=== PATIENT | male | born 2000 | race African-American/Black ===

== ENCOUNTER 2022-09-12 15:36 | Emergency (ER) | payer OTHER ==
[2022-09-12 16:39] LABS: Urine Blood Negative (Negative); Urine Glucose Negative (Negative); Urine Protein 2+ (Negative); Urine Specific Gravity 1.025 (1.005-1.030)
[2022-09-12] MEDS ORDERED: NA CHLORIDE 0.9% 1,000 ML ONE (16:46)
[2022-09-12 16:53] LABS: Hematocrit 47.9 % (39.6-49.0); Lymphocytes % 49.6 % (15.3-44.8); MPV 8.2 fL (7.6-11.3); RBC Red Blood Cell Count 5.33 M/uL (4.33-5.43)
[2022-09-12 16:56] LABS: Protime INR 1.13
[2022-09-12 17:13] LABS: Barbiturates NEGATIVE (NEGATIVE); Benzodiazepines NEGATIVE (NEGATIVE); Cocaine POSITIVE (NEGATIVE); METHAMPHETAM NEGATIVE (NEGATIVE); Methadone NEGATIVE (NEGATIVE); Opiates NEGATIVE (NEGATIVE); Phencyclidine NEGATIVE (NEGATIVE); THC Cannibis POSITIVE (NEGATIVE)
[2022-09-12 17:26] LABS: ALT/SGPT 27 U/L (16-61); Albumin 4.7 g/dL (3.4-5.0); Alkaline Phosphatase 40 U/L (45-117); BUN Blood Urea Nitrogen 12 mg/dL (7-18); Bicarbonate 28 mmol/L (21-32); Bilirubin Direct 0.2 mg/dL (0-0.2); Bilirubin Total 0.9 mg/dL (0.2-1.0); Glomerular Filtration Rate 101 ml/min (=/>90); Glucose Level 70 mg/dL (74-106); Protein, Total 8.6 g/dL (6.4-8.2); Sodium Level 138 mmol/L (136-145)
[2022-09-12 17:27] LABS: AST/SGOT 29 U/L (15-37); Potassium 4.1 mmol/L (3.5-5.1)
--- NOTE | 2022-09-12 17:38 | ER ---
Nurse's Notes [facility] Name: Celeste Zurita Age: 22 yrs Sex: Male : 2000 Arrival Date: 09/12/2022 Time: 15:38 Bed 13 Private MD: Diagnosis: Cocaine abuse;Abuse of other non-psychoactive substances;Adjustment disorder with depressed mood;Suicidal ideations Presentation: 09/12 16:24 Chief complaint: Patient states: "I'M PISSED OFF I'M ALIVE. I JUST MOVED LAST MONTH AND bp SHIT STILL AIN'T WORKING OUT.". Coronavirus screen: At this time, the client does not indicate any symptoms associated with coronavirus-19. Ebola Screen: No symptoms or risks identified at this time. Initial Sepsis Screen: Does the patient meet any 2 criteria? No. Patient's initial sepsis screen is negative. Does the patient have a suspected source of infection? No. Patient's initial sepsis screen is negative. Risk Assessment: Do you want to hurt yourself or someone else? Patient reports desire/thoughts of hurting themselves or someone else. Provider notified. Note PT REPORT MX SUICIDAL GESTURES IN THE PAST, TO NO EFFECT, NO CURRENT ATTEMPT. PT STATES PREVIOUS ATTEMPTS CONSIST OF "TAKING ALL THE DRUGS. WHOLE RAINBOWS.". Onset of symptoms is unknown. 16:24 Method Of Arrival: Ambulatory bp 16:24 Acuity: VIVI 2 bp Triage Assessment: 16:29 General: Appears distressed, comfortable, Behavior is cooperative, appropriate for age, bp agitated, anxious. Pain: Denies pain. EENT: No deficits noted. Neuro: Level of Consciousness is awake, alert, obeys commands, Oriented to Appropriate for age. Cardiovascular: No deficits noted. Respiratory: No deficits noted. GI: No signs and/or symptoms were reported involving the gastrointestinal system. : No signs and/or symptoms were reported regarding the genitourinary system. Derm: No deficits noted. Musculoskeletal: No deficits noted. Historical: - Allergies: 16:29 No Known Allergies; bp - Home Meds: 16:29 None [Active]; bp - PMHx: 16:29 None; bp - Immunization history:: Adult Immunizations unknown. - Social history:: Smoking status: Patient denies any tobacco usage or history of. Patient uses street drugs, marijuana. Screenin:31 [facility] ED Fall Risk Assessment (Adult) History of falling in the last 3 months, bp including since admission No falls in past 3 months (0 pts). Abuse screen: Denies threats or abuse. Denies injuries from another. Nutritional screening: No deficits noted. Tuberculosis screening: No symptoms or risk factors identified. Assessment: 16:31 General: SEE TRIAGE NOTE. bp Psych: 16:32 [place] Suicide Severity Screening: In the past month, have you wished you were bp or wished you could go to sleep and not wake up? Patient responds "yes." Based off the client's responses additional C-SSRS screening is required. "In the past month, have you actually had any thoughts of killing yourself?" Patient responds "yes." Based off the client's response additional [place] suicide severity screening questions to be further documented on paper forms. "In your lifetime, have you ever done anything, started to do anything, or prepared to do anything to end your life?" Patient responds "yes." Patient reports suicidal intent within 3 past months. Subjective: Patient's mood is irritable, Delusions are denied, Hallucinations are denied Having thoughts of suicide. Plan for suicide is OVERDOSE ON STREET DRUGS. Objective: Patient is cooperative, defensive, Speech is normal, Affect is appropriate, Patient has mutilated themselves by NONE. Interventions: Removed personal items and placed in bag. Patient placed in hospital gown. Urine collected and sent for urine drug test. Safety Checks: Personal items have been removed. Door is open. No visitors are present at this time. Patient uses marijuana daily. Commitment: Patient will be a voluntary commitment. Vital Signs: 16:24 BP 145 / 87; Pulse 61; Resp 16; Temp 98; Pulse Ox 98% ; Weight 77.11 kg; Height 6 ft. 1 bp in. (185.42 cm); 17:15 BP 141 / 72; Pulse 62; Pulse Ox 99% ; ko1 18:16 BP 138 / 75; Pulse 65; Resp 18; Pulse Ox 99% on R/A; ko1 16:24 Body Mass Index 22.43 (77.11 kg, 185.42 cm) bp ED Course: 15:38 Patient arrived in ED. rg4 15:47 Lakhwinder Callahan MD is Attending Physician. horace 16:14 Risa Lynn, ARELIS is Primary Nurse. ko1 16:29 Triage completed. bp 16:29 Arm band placed on. bp 16:31 Patient has correct armband on for positive identification. Placed in gown. Bed in low bp position. Call light in reach. Side rails up X2. 16:31 Inserted saline lock: 20 gauge in right antecubital area, using aseptic technique. bp Blood collected. 16:36 Acetaminophen Sent. zm 16:36 Basic Metabolic Panel Sent. zm 16:36 CBC with Diff Sent. zm 16:36 ETOH Level Sent. zm 16:36 Hepatic Function Sent. zm 16:36 PT-INR Sent. zm 16:36 Ptt, Activated Sent. zm 16:36 Salicylate Sent. zm 16:36 Urine Drug Screen Sent. zm 17:36 Jhonny Pedraza MD is Referral Physician. [facility] 18:06 SARS-COV-2 Antigen Rapid Sent. ko1 18:16 No provider procedures requiring assistance completed. IV discontinued, intact, ko1 bleeding controlled, No redness/swelling at site. Pressure dressing applied. Administered Medications: 16:48 Drug: NS 0.9% 1000 ml Route: IV; Rate: 1 bolus; Site: right antecubital; ko1 18:15 Follow up: IV Status: Completed infusion ko1 Medication: 16:31 VIS not applicable for this client. bp Outcome: 17:37 Discharge ordered by . horace 18:25 Discharged to home ambulatory. ko1 18:25 Condition: stable 18:25 Discharge instructions given to patient, Instructed on discharge instructions, follow up and referral plans. Demonstrated understanding of instructions, follow-up care. 18:30 Patient left the ED. ko1 Signatures: Lakhwinder Callahan MD MD cha Garcia, Rubi rg4 Ramiro Blount, RN RN Dixie Redman Kathy, ARELIS RN ko1
--- NOTE | 2022-09-12 17:38 | EDPHYS ---
Physician Documentation [facility] Name: Celeste Zurita Age: 22 yrs Sex: Male : 2000 Arrival Date: 09/12/2022 Time: 15:38 Bed 13 Private MD: ED Physician Lakhwinder Callahan HPI: 09/12 17:33 This 22 yrs old Black Male presents to ER via Ambulatory with complaints of Suicidal horace Ideation. 17:33 The patient presents to the emergency department with depression, suicide ideation, but horace the patient has no formulated plan. Onset: The symptoms/episode began/occurred 2 day(s) ago. Past psychiatric history: Prior diagnosis: addiction history, cocaine, marijuana, depression. Associated signs and symptoms: Pertinent positives; anxiety. Severity of symptoms: At their worst the symptoms were mild in the emergency department the symptoms are unchanged. The patient has experienced similar episodes in the past, several times. Historical: - Allergies: 16:29 No Known Allergies; bp - Home Meds: 16:29 None [Active]; bp - PMHx: 16:29 None; bp - Immunization history:: Adult Immunizations unknown. - Social history:: Smoking status: Patient denies any tobacco usage or history of. Patient uses street drugs, marijuana. ROS: 17:34 Constitutional: Negative for fever, chills, and weight loss, Eyes: Negative for injury, horace pain, redness, and discharge, ENT: Negative for injury, pain, and discharge, Neck: Negative for injury, pain, and swelling, Cardiovascular: Negative for chest pain, palpitations, and edema, Respiratory: Negative for shortness of breath, cough, wheezing, and pleuritic chest pain, Abdomen/GI: Negative for abdominal pain, nausea, vomiting, diarrhea, and constipation, Back: Negative for injury and pain, : Negative for injury, bleeding, discharge, and swelling, MS/Extremity: Negative for injury and deformity, Skin: Negative for injury, rash, and discoloration, Neuro: Negative for headache, weakness, numbness, tingling, and seizure, Allergy/Immunology: Negative for hives, rash, and allergies, Endocrine: Negative for neck swelling, polydipsia, polyuria, polyphagia, and marked weight changes, Hematologic/Lymphatic: Negative for swollen nodes, abnormal bleeding, and unusual bruising. 17:34 Psych: Positive for anxiety, depression, drug dependence, suicidal ideation. Exam: 17:34 Constitutional: This is a well developed, well nourished patient who is awake, alert, horace and in no acute distress. Head/Face: Normocephalic, atraumatic. Eyes: Pupils equal round and reactive to light, extra-ocular motions intact. Lids and lashes normal. Conjunctiva and sclera are non-icteric and not injected. Cornea within normal limits. Periorbital areas with no swelling, redness, or edema. ENT: Nares patent. No nasal discharge, no septal abnormalities noted. Tympanic membranes are normal and external auditory canals are clear. Oropharynx with no redness, swelling, or masses, exudates, or evidence of obstruction, uvula midline. Mucous membranes moist. Neck: Trachea midline, no thyromegaly or masses palpated, and no cervical lymphadenopathy. Supple, full range of motion without nuchal rigidity, or vertebral point tenderness. No Meningismus. Chest/axilla: Normal chest wall appearance and motion. Nontender with no deformity. No lesions are appreciated. Cardiovascular: Regular rate and rhythm with a normal S1 and S2. No gallops, murmurs, or rubs. Normal PMI, no JVD. No pulse deficits. Respiratory: Lungs have equal breath sounds bilaterally, clear to auscultation and percussion. No rales, rhonchi or wheezes noted. No increased work of breathing, no retractions or nasal flaring. Abdomen/GI: Soft, non-tender, with normal bowel sounds. No distension or tympany. No guarding or rebound. No evidence of tenderness throughout. Back: No spinal tenderness. No costovertebral tenderness. Full range of motion. Skin: Warm, dry with normal turgor. Normal color with no rashes, no lesions, and no evidence of cellulitis. MS/ Extremity: Pulses equal, no cyanosis. Neurovascular intact. Full, normal range of motion. Neuro: Awake and alert, GCS 15, oriented to person, place, time, and situation. Cranial nerves II-XII grossly intact. Motor strength 5/5 in all extremities. Sensory grossly intact. Cerebellar exam normal. Normal gait. Psych: Awake, alert, with orientation to person, place and time. Behavior, mood, and affect are within normal limits. 17:34 ECG was reviewed by the Attending Physician. Vital Signs: 16:24 BP 145 / 87; Pulse 61; Resp 16; Temp 98; Pulse Ox 98% ; Weight 77.11 kg; Height 6 ft. 1 bp in. (185.42 cm); 17:15 BP 141 / 72; Pulse 62; Pulse Ox 99% ; ko1 18:16 BP 138 / 75; Pulse 65; Resp 18; Pulse Ox 99% on R/A; ko1 16:24 Body Mass Index 22.43 (77.11 kg, 185.42 cm) bp MDM: 15:47 Patient medically screened. horace 17:35 Differential diagnosis: drug withdrawal. acute psychotic break, depression. Data horace reviewed: vital signs, nurses notes, lab test result(s), EKG. Data interpreted: shelter monitor: rate is 60 beats/min, rhythm is regular, Pulse oximetry: on room air is 98 %. Test interpretation: by ED physician or midlevel provider: ECG. Counseling: I had a detailed discussion with the patient and/or guardian regarding: the historical points, exam findings, and any diagnostic results supporting the discharge/admit diagnosis, lab results, the need for outpatient follow up, for definitive care, a family practitioner, a psychiatrist. 09/12 15:48 Order name: Acetaminophen; Complete Time: 17:32 horace 09/12 15:48 Order name: Basic Metabolic Panel; Complete Time: 17:32 horace 09/12 15:48 Order name: CBC with Diff; Complete Time: 17:32 horace 09/12 15:48 Order name: ETOH Level; Complete Time: 17:32 horace 09/12 15:48 Order name: Hepatic Function; Complete Time: 17:32 horace 09/12 15:48 Order name: PT-INR; Complete Time: 17:32 horace 09/12 15:48 Order name: Ptt, Activated; Complete Time: 17:32 horace 09/12 15:48 Order name: Salicylate; Complete Time: 17:32 horace 09/12 15:48 Order name: Urine Drug Screen; Complete Time: 17:32 horace 09/12 15:48 Order name: EKG; Complete Time: 15:48 horace 09/12 15:48 Order name: EKG - Nurse/Tech; Complete Time: 16:29 horace 09/12 16:39 Order name: Urine Dipstick-Ancillary; Complete Time: 17:32 EDMS 09/12 16:56 Order name: SARS-COV-2 Antigen Rapid bd 09/12 15:48 Order name: IV Saline Lock; Complete Time: 16:34 horace 09/12 15:48 Order name: Labs collected and sent; Complete Time: 16:34 horace 09/12 15:48 Order name: Suicide Precautions; Complete Time: 16:34 horace 09/12 15:48 Order name: Suicide Screening ([place]); Complete Time: 16:34 horace 09/12 15:48 Order name: Urine Dipstick-Ancillary (obtain specimen); Complete Time: 16:36 horace EC:34 Rate is 60 beats/min. Rhythm is regular. QRS [place] is Normal. LA interval is normal. QRS horace interval is normal. QT interval is normal. No Q waves. T waves are Normal. No ST changes noted. Clinical impression: NSR w/ Non-specific ST/T Changes and No evidence of ischemia. Interpreted by me. Reviewed by me. Administered Medications: 16:48 Drug: NS 0.9% 1000 ml Route: IV; Rate: 1 bolus; Site: right antecubital; ko1 18:15 Follow up: IV Status: Completed infusion ko1 Disposition Summary: 09/12/22 17:37 Discharge Ordered Location: Home horace Problem: new horace Symptoms: have improved horace Condition: Stable horace Diagnosis - Cocaine abuse horace - Abuse of other non-psychoactive substances horace - Adjustment disorder with depressed mood horace - Suicidal ideations horace Followup: horace - With: Private Physician - When: 2 - 3 days - Reason: Recheck today's complaints, Continuance of care, Re-evaluation by your physician Followup: horace - With: Jhonny Pedraza MD - When: 2 - 3 days - Reason: Recheck today's complaints, Re-evaluation by your physician Discharge Instructions: - Discharge Summary Sheet horace - Adjustment Disorder, Adult horace - Finding Treatment for Addiction horace - Substance Use Disorder horace - Supporting Someone With an Addiction horace - Suicidal Feelings: How to Help Yourself horace - Helping Someone Who is Suicidal horace - Stress, Adult horace - Substance Use Disorder and Mental Illness horace - Illegal Drug Use Information, Adult horace - Supporting Someone With Substance Use Disorder horace Forms: - Medication Reconciliation Form horace - Thank You Letter horace - Work release form bd - Antibiotic Education horace - Prescription Opioid Use horace Signatures: Dispatcher [employer] Lakhwinder Gallo MD MD horace Jose Alejandro, Ramiro, RN RN bp Risa Lynn, ARELIS RN ko1
[2022-09-12 18:23] LABS: SARS-CoV-2 Antigen Rapid Res Negative (Negative)
[2022-09-12 18:34] VITALS: TEMP 98
[2022-09-12 18:35] VITALS: O2SAT 99
[2022-09-12 18:36] VITALS: BP 138/75
--- NOTE | 2022-09-13 15:22 | EKG ---
Test Date: 2022-09-12 Test Time: 16:23:39 Manager Msw: HERBERT MEASUREMENT RESULTS: Intervals: Rate: 60 AL: 158 QRSD: 78 QT: 384 QTc: 384 [place]: P: 66 AL: 158 QRS: 92 T: 56 INTERPRETIVE STATEMENTS: Normal sinus rhythm Rightward axis Borderline ECG No previous ECG available for comparison Electronically Signed On 09-13-22 15:20:42 BAGGING SALVAGER by Amilcar Mo
--- NOTE | 2022-09-13 15:22 | EKG ---
Test Date: 2022-09-12 Test Time: 16:24:54 Admissions Specialist: HERBERT MEASUREMENT RESULTS: Intervals: Rate: 73 FL: 162 QRSD: 78 QT: 380 QTc: 418 [place]: P: 78 FL: 162 QRS: 91 T: 58 INTERPRETIVE STATEMENTS: Normal sinus rhythm Rightward axis Borderline ECG Compared to ECG 09/12/2022 16:23:39 No significant changes Electronically Signed On 09-13-22 15:20:40 INFORMATION TECHNOLOGY ARCHITECT by Amilcar Mo
== END 2022-09-12 18:30 | disposition home or self-care (01) ==
LOC: ER 15:36
DX: R45.851 Suicidal ideations (principal); F43.21 Adjustment disorder with depressed mood; F14.10 Cocaine abuse, uncomplicated; F55.8 Abuse of other non-psychoactive substances; Z20.822 Contact with and (suspected) exposure to COVID-19
CPT/HCPCS: 93005 ×2; 85025; 80048; 36415; 80320; 80329 ×2; 85610; 80076; 85730; 81003; 80307; 96360; 99284; 87811; J7030